=== PATIENT | female | born 1945 | race Caucasian/White ===

== ENCOUNTER 2018-08-04 20:34 | Emergency (ER) | payer OTHER ==
[~2018-08-04] VITALS: Ht 160 cm; Wt 79.8 kg
[2018-08-04 20:50] VITALS: Ht 160 cm; Wt 79.8 kg
[2018-08-05 00:03] VITALS: BP 136/84
== END 2018-08-05 00:03 | disposition home or self-care (01) ==
LOC: ED 20:34
DX: S63.617A Unspecified sprain of left little finger, initial encounter (principal); S53.402A Unspecified sprain of left elbow, initial encounter; S80.02XA Contusion of left knee, initial encounter; S00.83XA Contusion of other part of head, initial encounter; S09.8XXA Other specified injuries of head, initial encounter; Z88.5 Allergy status to narcotic agent; Z90.710 Acquired absence of both cervix and uterus; Z90.89 Acquired absence of other organs; Z88.6 Allergy status to analgesic agent; W01.0XXA Fall on same level from slipping, tripping and stumbling without subsequent striking against object, initial encounter; Y93.89 Activity, other specified; Y92.89 Other specified places as the place of occurrence of the external cause; Y99.8 Other external cause status
CPT/HCPCS: A4570; J3010; Q0092; Q0162